=== PATIENT | male | born 1960 | race Caucasian/White ===

== ENCOUNTER 2023-07-29 15:27 | Emergency (ER) | payer SELFPAY ==
[~2023-07-29] VITALS: Ht 175.3 cm; Wt 76.3 kg
[2023-07-29] MEDS ORDERED: AMOX/K CLAV875 M1 PO (16:48)
[2023-07-29] MEDS ORDERED: FLONASE AL50 MCG/AC1 NAB (16:48)
[2023-07-29 17:05] VITALS: BP 141/76
== END 2023-07-29 18:13 | disposition home or self-care (01) | DRG 153 ==
LOC: ED 15:27
DX: H66.91 Otitis media, unspecified, right ear (principal)

== ENCOUNTER 2023-09-12 15:16 | Emergency (ER) | payer SELFPAY ==
[~2023-09-12] VITALS: Ht 175.3 cm; Wt 90.0 kg
[~2023-09-12 15:16] MED LIST: AMOX/K CLAV875 M1 PO; FLONASE AL50 MCG/AC1 NAB
[2023-09-12] MEDS ORDERED: PAXLOVID PO (18:46)
[2023-09-12] MEDS ORDERED: MOTRIN800 MG PO (18:46)
[2023-09-12] MEDS ORDERED: CLINDAMYCIN HY150 MG PO (18:46)
[2023-09-12 18:50] VITALS: BP 165/84
== END 2023-09-12 19:01 | disposition home or self-care (01) | DRG 179 ==
LOC: ED 15:16
DX: U07.1 COVID-19 (principal); H66.91 Otitis media, unspecified, right ear

== ENCOUNTER 2023-09-25 13:25 | Emergency (ER) | payer SELFPAY ==
[~2023-09-25] VITALS: Ht 175.3 cm; Wt 83.0 kg
[~2023-09-25 13:25] MED LIST changes: +CLINDAMYCIN HY150 MG PO; +MOTRIN800 MG PO; +PAXLOVID PO
[2023-09-25 13:33] VITALS: BP 137/81
[2023-09-25 13:45] VITALS: BP 142/70
[2023-09-25] MEDS ORDERED: ROBITUSSIN AC10 ML PO (14:54)
[2023-09-25] MEDS ORDERED: AMOX/K CLAV875 M1 PO (14:54)
[2023-09-25 15:15] VITALS: BP 142/70
== END 2023-09-25 15:19 | disposition home or self-care (01) | DRG 153 ==
LOC: ED 13:25
DX: H66.91 Otitis media, unspecified, right ear (principal); Z86.16 Personal history of COVID-19; Z72.0 Tobacco use; Z20.822 Contact with and (suspected) exposure to COVID-19

== ENCOUNTER 2024-03-11 23:47 | Emergency (ER) | payer OTHER ==
[~2024-03-11] VITALS: Ht 175.3 cm; Wt 64.0 kg
[~2024-03-11 23:47] MED LIST changes: +ROBITUSSIN AC10 ML PO
[2024-03-11] MEDS ORDERED: LIDOCAINE HCL 2 % JELLY TOP ONE (23:55)
[2024-03-12 00:45] VITALS: BP 142/45
== END 2024-03-12 00:53 | disposition home or self-care (01) | DRG 394 ==
LOC: ED 23:47
PROC: 0DH67UZ Insertion of Feeding Device into Stomach, Via Natural or Artificial Opening (ICD-10-PCS; principal; 2024-03-12)
DX: K94.23 Gastrostomy malfunction (principal); Q32.1 Other congenital malformations of trachea; C14.0 Malignant neoplasm of pharynx, unspecified; Y83.3 Surgical operation with formation of external stoma as the cause of abnormal reaction of the patient, or of later complication, without mention of misadventure at the time of the procedure; Z72.0 Tobacco use

== ENCOUNTER 2024-03-18 23:48 | Emergency (ER) | payer OTHER ==
[~2024-03-18] VITALS: Ht 175.3 cm; Wt 77.0 kg
[2024-03-19] VITALS (10 sets, daily range): BP systolic 114–140; BP diastolic 45–104
[2024-03-19] MEDS ORDERED: OXYCODONE5 M1 PO (00:09)
[2024-03-19] MEDS ORDERED: XANAX0.5 MG PO (00:10)
[2024-03-19] MEDS ORDERED: LIDOCAINE VISCOUS 2% 15 ML UDC PO ONE (00:10)
[2024-03-19] MEDS ORDERED: MIRTAZAPINE15 MG PO (00:10)
[2024-03-19] MEDS ORDERED: SODIUM CHLORIDE 0.9% 1,000 ML IV STA (00:15)
[2024-03-19] MEDS ORDERED: KETOROLAC TROMETHAMINE 30 MG/ML SDV IV ONE (01:15)
[2024-03-19] MEDS ORDERED: PROMETHAZINE HCL 25 MG/ML AMP IV ONE (01:15)
[2024-03-19 01:19] LABS: BASO% 0.4 % (0-3); EOS% 2.5 % (0-8); HEMATOCRIT 27.3 % (39.0-50.0); HEMOGLOBIN 9.2 g/dl (14.0-18.0); IMMATURE GRANULOCYTES 0.7 % (0.0-5.0); LYMPH% 12.1 % (15-41); MEAN CELL VOLUME 101.1 fL CALC (80.0-100.0); MEAN CORPUSCULAR HGB 34.1 pG CALC (26.0-32.0); MEAN CORPUSCULAR HGB CONC 33.7 g/dL CAL (32.0-36.0); MONO% 7.5 % (2-13); NEUT# 6.18 thou/uL (1.82-7.42); NEUT% 76.8 % (42-76); RED BLOOD COUNT 2.7 mill/uL (4.70-6.10); RED CELL DISTRI WIDTH 15.5 % (11.5-15.5)
[2024-03-19 01:44] LABS: ALBUMIN 4.4 g/dL (3.2-5.0); BILIRUBIN, TOTAL 0.5 mg/dL (0.2-1.3); C-REACTIVE PROTEIN 1.3 mg/dL (0-0.9); CREATININE 0.7 mg/dL (0.7-1.3); POTASSIUM 4.2 mmol/l (3.5-5.1); TOTAL PROTEIN 7.6 g/dL (6.3-8.2)
[2024-03-19] MEDS ORDERED: ONDANSETRON4 MG/5 ML PO (02:44)
== END 2024-03-19 03:00 | disposition home or self-care (01) | DRG 392 ==
LOC: ED 23:48
PROVIDERS: Family Medicine
DX: R11.10 Vomiting, unspecified (principal); R07.0 Pain in throat; Z85.819 Personal history of malignant neoplasm of unspecified site of lip, oral cavity, and pharynx; Z93.1 Gastrostomy status; Z93.0 Tracheostomy status; Z20.822 Contact with and (suspected) exposure to COVID-19